=== PATIENT | male | born 1985 | race Caucasian/White ===

== ENCOUNTER 2018-12-26 09:24 | Emergency (ER) | payer SELFPAY ==
[~2018-12-26] VITALS: Ht 185.4 cm; Wt 79.4 kg
[~2018-12-26 09:24] MED LIST: [UNRECOGNIZED DRUG - CODE] PO
--- NOTE | 2018-12-26 09:24 | NUR ---
PT RAFAEL BURNHAM FOR PREBOOK TO ER BED 05
[2018-12-26 09:31] VITALS: BP 153/93
--- NOTE | 2018-12-26 10:28 | NUR ---
RESTING WITH OU CLOSED, NO GRIMACE NO MOAN NO ACCESSORY MUSCLE USE NOTED FEET CROSSED AND HANDS FOLDED OVER [employer]OMEN [place] [employer] OFFICER ZHANG REMAINS AT BEDSIDE PT AWAITS DISPO
[2018-12-26 11:24] VITALS: BP 134/89
--- NOTE | 2018-12-26 11:25 | NUR ---
Patient discharged with v/s stable. Written and verbal after care instructions given and explained. Patient alert, oriented and verbalized understanding of instructions. Ambulatory with steady gait Escorted by [place] [employer]. All questions addressed prior to discharge. ID band removed. Patient advised to follow up with PMD. Rx of BACTRIM given. Patient educated on indication of medication including possible reaction and side effects. Opportunity to ask questions provided and answered.
== END 2018-12-26 11:25 ==
LOC: MED 09:24
DX: S80.212A Abrasion, left knee, initial encounter (principal); S00.31XA Abrasion of nose, initial encounter; S31.030A Puncture wound without foreign body of lower back and pelvis without penetration into retroperitoneum, initial encounter; L03.114 Cellulitis of left upper limb; F17.210 Nicotine dependence, cigarettes, uncomplicated; F12.90 Cannabis use, unspecified, uncomplicated; F11.90 Opioid use, unspecified, uncomplicated; Z91.013 Allergy to seafood; Z79.899 Other long term (current) drug therapy; Z90.49 Acquired absence of other specified parts of digestive tract; X58.XXXA Exposure to other specified factors, initial encounter; Y93.89 Activity, other specified; Y92.89 Other specified places as the place of occurrence of the external cause; Y99.8 Other external cause status
CPT/HCPCS: 90471; 90715; 99283